=== PATIENT | female | born 1965 | race Caucasian/White ===

== ENCOUNTER → 2021-03-18 | Outpatient (CLI) | payer BC | LOC: MC.RAD 15:45 | DX: Z12.31 Encounter for screening mammogram for malignant neoplasm of breast (principal) ==

== ENCOUNTER → 2022-03-27 | Outpatient (CLI) | payer BC | LOC: MC.RAD 08:53 | DX: Z12.31 Encounter for screening mammogram for malignant neoplasm of breast (principal) ==

== ENCOUNTER → 2023-06-22 | Outpatient (CLI) | payer BC ==
[~2023-06-22] MED LIST: CALCIUM 600MG+D1 TAB PO; CRESTOR 10MG10 MG PO; NORCO 325 MG-51 TAB PO; SYNTHROID 0.0.025 MG PO; TOPROL XL 25MG25 MG PO
== END ==
LOC: CANPRECLI → MC.RAD 04-15 16:30
DX: Z12.31 Encounter for screening mammogram for malignant neoplasm of breast (principal)